=== PATIENT | female | born 1945 | race American Indian/Alaskan Native ===

== ENCOUNTER 2018-07-28 09:06 | Outpatient (CLI) | payer MEDICARE | END 2018-07-28 09:07 | disposition home or self-care (01) | LOC: C.MAMMO 09:06 | DX: Z12.31 Encounter for screening mammogram for malignant neoplasm of breast (principal) ==

== ENCOUNTER 2018-08-26 10:01 | Outpatient (CLI) | payer MEDICARE | END 2018-08-26 10:02 | disposition home or self-care (01) | LOC: C.VASC 10:01 | DX: M79.606 Pain in leg, unspecified (principal) ==

== ENCOUNTER 2018-09-30 14:01 | Outpatient (CLI) | payer MEDICARE | END 2018-09-30 14:02 | disposition home or self-care (01) | LOC: C.MRIC 14:01 | DX: M54.30 Sciatica, unspecified side (principal) ==